=== PATIENT | female | born 1975 | race Caucasian/White ===

== ENCOUNTER 2021-07-10 09:46 | Emergency (ER) | payer MEDICAID ==
[~2021-07-10] VITALS: Ht 157.5 cm; Wt 90.3 kg
[2021-07-10 12:15] LABS: CLARITY URINE CLEAR (CLEAR); COLOR URINE YELLOW (YELLOW); KETONES URINE NEGATIVE (NEGATIVE); LEUKOCYTE ESTERASE URINE NEGATIVE (NEGATIVE); NITRITE URINE NEGATIVE (NEGATIVE); OCCULT BLOOD URINE NEGATIVE (NEGATIVE); PROTEIN URINE NEGATIVE (NEGATIVE); UROBILINOGEN URINE 0.2 E.U./dL (0.2-1.0)
[2021-07-10] MEDS ORDERED: CEFTRIAXONE SODIUM 1 G/VIAL IM ONE (12:45)
[2021-07-10] MEDS ORDERED: LIDOCAINE HCL 1% 20ML VIAL (Pyxis) INJ INFIL ONE (12:45)
[2021-07-10] MEDS ORDERED: KETOROLAC 60MG/2ML VIAL IM ONE (12:45)
[2021-07-10] MEDS: LIDOCAINE HCL 1% 30ML VIAL (10MG/ML) INFIL NR ×2 (14:06→14:14)
[2021-07-10 14:30] VITALS: BP 137/85
[2021-07-10] MEDS ORDERED: IBUP-2030 MT (14:31)
[2021-07-10] MEDS ORDERED: METR500T MT (14:31)
[2021-07-10] MEDS ORDERED: DOXY100T2 MT (14:31)
== END 2021-07-10 16:07 | disposition home or self-care (01) ==
LOC: ER 09:46
DX: N73.0 Acute parametritis and pelvic cellulitis (principal); D25.9 Leiomyoma of uterus, unspecified; N83.202 Unspecified ovarian cyst, left side
CPT/HCPCS: 76830; 76856; 81003; 81025; 87210; 96372; 99284; J0696; J1885; J3490